=== PATIENT | male | born 1975 | race Caucasian/White ===

== ENCOUNTER → 2021-02-19 09:21 | Outpatient (CLI) | payer OTHER, SELFPAY ==
[2021-02-06 15:12] VITALS: BMI 35.1
--- NOTE | 2021-02-19 09:33 | ECHOD_ITS ---
Reason For Study: Hx of A fib/flutter Procedure This was a 2D Doppler, Color Flow transthoracic echocardiogram. Exam performed in department. Left Ventricle Normal LV size. Left ventricular systolic function is normal. The estimated ejection fraction is 60 %. Stage 1 diastolic dysfunction. No regional wall motion abnormalities noted. Right Ventricle Normal RV size. Normal systolic function. Atria Normal left atrium. Normal right atrium. Mitral Valve Normal mitral valve. Tricuspid Valve Normal tricuspid valve. Aortic Valve Normal aortic valve. Pulmonic Valve Normal pulmonic valve. Great Vessels Normal aortic root. Pericardium/Pleural No pericardial effusion. MMode/2D Measurements & Calculations LVIDd: 5.2 cm IVSd: 1.0 cm Ao root diam: 3.1 cm LVIDs: 3.2 cm LVPWd: 0.98 cm RVDd: 3.7 cm FS: 37.7 % LAV(MOD-bp): 49.2 ml EDV(MOD-sp4): 110.7 ml EDV(MOD-sp2): 95.1 ml LAV(MOD-bp) Indexed: 22.6 ml/m2 ESV(MOD-sp4): 38.8 ml EF(MOD-sp2): 56.7 % LAV(MOD-sp2): 57.2 ml EF(MOD-sp4): 65.0 % LAV(MOD-sp4): 38.7 ml SV(MOD-sp4): 71.9 ml SV(MOD-sp2): 53.9 ml LA A4 area: 16.3 cm2 LA dimension(2D): 3.2 cm RA A4 area: 13.7 cm2 Doppler Measurements & Calculations MV E max tim: 48.6 cm/sec Lat Peak E' Tim: 14.4 cm/sec Med Peak E' Tim: 9.1 cm/sec MV A max tim: 53.4 cm/sec E/E' lat: 3.4 E/E' med: 5.4 MV E/A: 0.91 Ao V2 max: 137.3 cm/sec LV V1 max: 104.9 cm/sec PA V2 max: 179.9 cm/sec Ao max P.5 mmHg LV V1 max P.4 mmHg ECHO/Echo Complete Interpretation Summary Normal LV size. Left ventricular systolic function is normal. The estimated ejection fraction is 60 %. Stage 1 diastolic dysfunction. The global longitudinal strain is normal. The global longitudinal strain = -18. 9 % (normal). Ordering Physician: Hayden Turner Referring Physician: Hayden Turner Performed By: Kayla Jimenez RDCS
--- NOTE | 2021-02-19 12:44 | STRESSREP ---
Stress Test Report Exercise stress test. 45-year-old man with a history of atrial fibrillation. Stress protocol: Resting EKG demonstrates normal sinus rhythm with a rate of 70 bpm normal intervals are noted resting blood pressure is 118/80 mmHg. The patient exercised according to the regular Adams protocol for a total duration of 12 minutes and 22 seconds. The maximum heart rate attained was 166 bpm which was 95% of maximum predicted heart rate the maximum workload was 14 metabolic equivalents. The patient maintained sinus rhythm throughout the recording. At rest there were no ST or T wave changes noted to suggest ischemia and at peak exercise upsloping ST changes were noted which did not meet the criteria for ischemia. No clinical angina was noted. The test was terminated due to the target heart rate being achieved. The peak blood pressure was 164/88, with a rate-pressure product of 25,400. Conclusion: Normal exercise stress test with no evidence of ischemia at a high workload. No clinical angina noted. No arrhythmias present.
== END ==
PROVIDERS: Referring Provider Internal Medicine Cardiovascular Disease; Visit Provider Internal Medicine Cardiovascular Disease
DX: I48.0 Paroxysmal atrial fibrillation (principal)
CPT/HCPCS: 93017; 93306

== ENCOUNTER → 2023-02-21 | Outpatient (CLI) | payer OTHER, SELFPAY | END | disposition home or self-care (01) | LOC: PSN 09:19 | PROVIDERS: Referring Provider Nurse Practitioner Family; Visit Provider Nurse Practitioner Family | DX: R00.0 Tachycardia, unspecified (principal); I48.0 Paroxysmal atrial fibrillation | CPT/HCPCS: 93225; 93226 ==

== ENCOUNTER 2025-04-15 08:03 | Emergency (ER) | payer BC, SELFPAY ==
[2025-04-15] VITALS (7 sets, daily range): BP systolic 132–136; BP diastolic 74–92; PULSE 62–77; RESP 14–18; TEMP 36.6–36.7; O2SAT 98–100; BMI 35.8
--- NOTE | 2025-04-15 08:26 | EKG12_ITS ---
Test Reason : CP Blood Pressure : */* mmHG Vent. Rate : 74 BPM Atrial Rate : 74 BPM P-R Int : 186 ms QRS Dur : 88 ms QT Int : 406 ms P-R-T Axes : 56 35 29 degrees QTcB Int : 450 ms Normal sinus rhythm with sinus arrhythmia Normal ECG Confirmed by Yair Clarke ([id number]), industrial editor U[employer] ELISE ([id number]) on 04/16/2025 11:11:03 AM Referred By: GRAHAM Confirmed By: Yair Clarke
--- NOTE | 2025-04-15 08:26 | RAD_ITS ---
PROCEDURE: CHEST 1 VIEW (PORTABLE) 04/15/2025 REASON FOR EXAM: CHEST PAIN TECHNIQUE: Frontal view of the chest. COMPARISON: None FINDINGS: The lungs are clear. The heart borders mediastinum and pulmonary vascular pattern are normal. The visualized upper abdominal bowel gas pattern is normal. There is mild dextroscoliosis of the thoracic spine. RAD/Chest 1 View (Portable) IMPRESSION: No evidence of acute cardiopulmonary pathology. Reading Location: [place] [address]
--- NOTE | 2025-04-15 08:27 | EDS_ITS ---
HPI History of Present Illness Chief Complaint: Chest Pain Narrative Narrative: 50-year-old male past medical history of remote paroxysmal atrial fibrillation, status post cardioversion is not on blood thinners presents with heartburn and burning in his chest since yesterday. He relates history that yesterday morning he was experiencing nausea and vomiting, no hematemesis. He went to urgent care and was given Zofran. He states that his nausea and vomiting would not stop. No diarrhea. No recent fevers or chills. However, he has had heartburn and burning in his chest in the distal portion of his esophagus. He presents to the emergency department with concern for ACS. He relates history that his grandfather had early coronary artery disease. No exacerbating or alleviating factors to this. No leg swelling. No shortness of breath or diaphoresis. [facility] Medical History COVID-19 (~03/2022) Obesity JESUS (obstructive sleep apnea) Paroxysmal atrial fibrillation Home Medications ?Medication ?Instructions ?Recorded ?Last Taken ?Type losartan 25 mg tablet 25 mg PO DAILY #90 tabs 11/0704/14/25 Rx calcium carbonate (Antacid Ultra 400 mg PO Q4H PRN hea rtburn 04/15/25 04/15/25 History Strength) magnesium 250 mg tablet 250 mg PO DAILY sleep 04/13/25 History ondansetron 4 mg disintegrating 4 mg PO Q8H PRN PRN na usea/vomiting 04/15/25 04/15/25 History tablet Allergy/AdvReac Type Severity Reaction Status Date / Time Penicillins Allergy Unknown unknown Verified 04/15/25 08:04 Family History Mother Cancer Father Hypertension Brother Hypertension Surgical History History of cardioversion (04/14/17) Social History Smoking Status: Never smoker alcohol intake: current alcohol intake frequency: a few times a month substance use type: does not use caffeine: Yes Type: coffee Number of servings: 1 ROS ROS ED ROS Narrative Review of systems positive for nausea and vomiting yesterday-improved/resolved. Positive chest burning lower chest. No fevers or chills, no cough, no diarrhea, no abdominal pain. No leg swelling. No exacerbating or alleviating factors except for the Zofran which improved his nausea and vomiting. EXAM Physical Exam Narrative Exam Narrative: Afebrile. Vital signs noted. Nontoxic-appearing. Cardiovascular examination reveals a regular rate and rhythm. Lungs are clear to auscultation bilaterally. Abdomen is soft, nontender, with positive bowel sounds. No guarding or rebound. Neurological examination is nonfocal, nonlateralizing. No pedal edema. Const Vital Signs: 04/15/25 08:04 04/15/25 08:34 04/15/25 09:04 Temperature 98.1 F Temperature Source Oral Pulse Rate 77 68 Respiratory Rate 16 15 Blood Pressure 134/92 H 134/77 H Blood Pressure Mean 106 96 Pulse Ox 98 100 100 Oxygen Delivery Method Room Air Room Air Room Air 04/15/25 10:00 04/15/25 11:00 04/15/25 11:12 Temperature Temperature Source Pulse Rate 62 68 73 Respiratory Rate 14 15 17 Blood Pressure 133/74 H 132/79 H 132/79 H Blood Pressure Mean 93 96 96 Pulse Ox 100 100 100 Oxygen Delivery Method Room Air Room Air MDM MDM MDM Narrative Medical decision making narrative: The differential diagnosis includes but not limited to esophagitis from vomiting versus ACS versus Boerhaave's versus gastritis. His abdomen is nontender and history and physical does not support pancreatitis. Chest pain workup was pursued. He was given a GI cocktail as well. EKG obtained and interpreted by myself independently as normal sinus rhythm at 74 bpm with sinus arrhythmia but no acute ST changes. No STEMI. I do feel that he would be able to be ruled out with biomarkers for ACS. I reviewed his laboratory work and he has normal white count of 6.9 with hemoglobin 15.3, hematocrit 43.4, platelet count normal at 180. Electrolyte panel is grossly unremarkable, with the exception of glucose 113, anion gap normal at 11. Initial high-sensitivity troponin is 7 with repeat at 2 hours less than 6 for an acceptable delta troponin. Repeat examination of the patient after GI cocktail shows that he has improved and resting comfortably on the cot. Chest x-ray in 1 view interpreted by myself independently shows no acute process, no pneumonia or pneumothorax. I do not feel he needs antibiotics. I reviewed the radiology report which confirms my independent interpretation. Given his history and physical, negative delta troponin, and normal EKG, I do feel he can be discharged to follow-up with his primary care provider. He was referred to 1 as well. I do feel he probably has more esophagitis from vomiting as he improved after GI cocktail. At this point in time, he will be discharged to follow-up. Return instructions to the emergency department were reviewed. Disposition is discharged home in stable condition. History & Record Review Discussion w/independent historian: Patient and Family Additional record(s) reviewed:: No prior records (No prior ED visits to this facility) Lab Data Attestation: I reviewed the patient's lab results. Labs: Laboratory Results - last 24 hr 04/15/25 04/15/25 08:30 10:53 WBC 6.9 RBC 5.28 Hgb 15.3 Hct 43.4 MCV 82.2 MCH 29.0 MCHC 35.3 RDW Std Deviation 38.4 RDW Coeff of Baljinder 12.8 Plt Count 180 MPV 10.9 Immature Gran % (Auto) 0.300 Neut % (Auto) 89.8 H Lymph % (Auto) 5.[address] [place] % (Auto) 4.4 Eos % (Auto) 0.1 Baso % (Auto) 0.3 Absolute Neuts (auto) 6.2 Absolute Lymphs (auto) 0.35 L Nucleated RBC % 0 Sodium 134 Potassium 3.8 Chloride 100 Carbon Dioxide 23.9 Anion Gap 11 BUN 14 Creatinine 0.89 Estim Creat Clear Calc 115.04 Est GFR (MDRD) Non-Af 103 BUN/Creatinine Ratio 16.0 Glucose 113 H Calcium 9.6 Troponin T High Sens 7 Troponin T Hi Sens 2 Hr < 6 Radiography Diagnostic Testing: Clinical Impression(s) from Imaging Studies Chest X-Ray 04/15/25 08:26 IMPRESSION: No evidence of acute cardiopulmonary pathology. Reading Location: [place] [address] Discharge Plan Triage Chief Complaint: Chest Pain ED Provider: Hai Mcknight Dx/Rx/DC Orders Clinical Impression: Chest pain, Esophagitis Instructions: Esophagitis, ED Chest Pain, Uncertain Cause Prescriptions: No Action losartan 25 mg tablet 25 mg PO DAILY Qty: 90 3RF ondansetron 4 mg tablet,disintegrating 4 mg PO Q8H PRN PRN (Reason: nausea/vomiting) magnesium 250 mg tablet 250 mg PO DAILY calcium carbonate [Antacid Ultra Strength] 400 mg calcium (1,000 mg) tablet,chewable 400 mg PO Q4H PRN (Reason: heartburn) Primary Care Provider: Care Physician,No Primary Referrals: Jose Alcala MD [Med Staff - [employer]] - 3-5 Days if not improving Care Physician,No Primary [Primary Care Provider] - Activity Restrictions/Additional Instructions: Return to the emergency department with increasing chest burning, new or worsening symptoms. Follow-up with your primary care provider in the next 3 to 5 days. You may need referral to a screening unit registered nurse in the future. Print Language: Citizen Of [place] Disposition Disposition: Home, Self Care
[2025-04-15 08:45] LABS: Absolute Lymphocyte Count 0.35 X10^3/uL (0.83-4.51); Absolute Neutrophil Count 6.2 X10^3/uL (2.0-7.7); Basophil# 0.02 X10^3/uL; Basophil% 0.3 % (0-1); Eosinophil# 0.01 X10^3/uL; Eosinophils% 0.1 % (0-5); Hematocrit 43.4 % (40-54); Hemoglobin 15.3 g/dL (13.0-16.5); Lymphocyte # 0.35 X10^3/ul (0.83-4.51); Lymphocyte % 5.1 % (19-41); Mean Corp Hgb Conc 35.3 g/dL (32-36); Mean Corpuscular Volume 82.2 fL (80-94); Mean Platelet Vol. 10.9 fl (6.2-12.0); Monocyte% 4.4 % (0-10); NRBC Flagged by Analyzer 0 % (0-5); Neutrophil # 6.16 X10^3/uL (2.7-7.7); Neutrophil % 89.8 % (47-70); POSITIVE DIFFERENTIAL YES; Platelet Count 180 K/mm3 (150-450); RBC Distribution Width CV 12.8 % (11.6-14.6); RBC Distribution Width SD 38.4 fl (35.1-43.9); Red Blood Count 5.28 M/mm3 (4.6-6.2); White Blood Count 6.9 K/mm3 (4.4-11.0)
[2025-04-15] MEDS: Mag Hydrox/Al Hydrox/Simeth 30 ML UDC PO (08:47)
[2025-04-15] MEDS: Lidocaine 2% Viscous15 ML UDC 15 ML PO (08:47)
[2025-04-15 09:16] LABS: Anion Gap 11 (5-15); BUN 14 mg/dL (4-19); Calcium,Total 9.6 mg/dL (7.6-11.0); Carbon Dioxide 23.9 mmol/L (21.0-32.0); Chloride 100 mmol/L (98-108); Creatinine, Serum 0.89 mg/dL (0.70-1.20); EST Glomerular Filtration Rate 103 (>60); Estimated Creatinine Clearance 115.04 ml/min (50-250); Glucose 113 mg/dL (70-99); Potassium 3.8 mmol/L (3.3-5.1); Sodium Level 134 mmol/L (133-145); Troponin T High Sensitivity 7 ng/L (<=22)
--- OUTSIDE RECORDS SUMMARY | 2025-04-15 11:35 | XMS RPT_ITS | CCD ---
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 Name Role Phone Jaren Ruizn Unavailable Unavailable PROVIDER, UNKNOWN Unavailable Unavailable Kaylee Bush Unavailable Unavailable Unavailable Primary Care Provider UnavailMARK Sparks Attending Unavailable MARK JOHNSON Referring Unavailable KASIA HART Referring Unavailable KASIA HART Primary Care Unavailable Jesús Williamson NP Attending Unavailable Unavailable Primary Care Provider Unavailcarlito e Allergies Allergy Classification Reported Allergen(s) Allergy Type Date of Onset Reaction(s) Facility (3 sources) Penicillins; Translations: [PENICILLINS] Allergy to substance 7 unknown [facility] (2 sources) Penicillins Drug Intolerance 7 Unknown [facility] Work Phone: (1 source) Penicillins Drug allergy (disorder) 5 [facility] Repository (1 source) Penicillins Drug Intolerance 7 Unknown [facility] Medications Current Medications Medication Drug Class(es) Dates Sig (Normalized) Sig (Original) losartan potassium 25 mg oral tablet (2 sources) Angiotensin 2 Receptor Lio Start: 05-17-2022 take 25 mg by mouth once daily Losartan Active 25 MG PO DAILY May 17, 2022 12:00am meloxicam 15 mg oral tablet (2 sources) Nonsteroidal Anti-inflammatory Drug Start: 09-04-2024 End: 09-18-2024 take 1 tablet by mouth once daily meloxicam (Mobic) 15 mg tablet Indications: Patellofemoral arthritis of left knee Take 1 tablet (15 mg) by mouth once daily for 14 days. 14 tablet 09/04/2024 09/18/2024 Active ondansetron 4 mg disintegrating oral tablet (1 source) Serotonin-3 Receptor Antagonist Start: 04-14-2025 take 1 tablet by mouth every eight hours for nausea ondansetron ODT (Zofran-ODT) 4 mg disintegrating tablet Indications: Nausea and vomiting, unspecified vomiting type Dissolve 1 tablet (4 mg) in the mouth every 8 hours if needed for nausea or vomiting for up to 12 doses. 12 tablet 04/14/2025 Active Start: 04-14-2025 take 1 tablet by simone th every eight hours for nausea ondansetron ODT (Zofran-ODT) 4 mg disintegrating tablet Indications: Nausea and vomiting, unspecified vomiting type Dissolve 1 tablet (4 mg) in the mouth every 8 hours if needed for nausea or vomiting for up to 12 doses. 12 tablet 04/14/2025 Active Completed/Discontinued Medications Medication Drug Class(es) Dates Sig (Normalized) Sig (Original) aspirin 81 mg delayed release oral tablet (1 source) Platelet Aggregation Inhibitor, Nonsteroidal Anti-inflammatory Drug Start: 02-03-2021 End: 02-06-2021 Aspirin (Adult Low Dose Aspirin) 81 mg tablet,delayed release (DR/EC) Discontinued 81 MG PO DAILY February 03, 2021 12:00am February 06, 2021 3:12pm lisinopril 10 mg oral tablet (3 sources) Angiotensin Converting Enzyme Inhibitor Start: 08-21-2021 End: 05-17-2022 take 5 mg by mouth once daily Lisinopril Discontinued 5 MG PO DAILY 0 August 21, 2021 9:00am May 17, 2022 4:20pm Start: 08-13-2021 End: 08-21-2021 take 10 mg by mouth once daily Lisinopril Discontinued 10 MG PO DAILY August 13, 2021 9:25am August 21, 2021 9:00am 24 hr metoprolol succinate 25 mg extended release oral tablet (1 source) beta-Adrenergic Lio Start: 02-03-2021 End: 02-06-2021 take 25 mg by mouth once daily Metoprolol Succinate Discontinued 25 MG PO DAILY February 03, 2021 12:00am February 06, 2021 3:38pm Problems Problem Classification Problem Date Documented Da te Episodic/Chronic Cardiac dysrhythmias (1 source) Paroxysmal atrial fibrillation; Translations: [Paroxysmal atrial fibrillation] 02-03-2021 Chronic Cardiac dysrhythmias (1 source) Sinus tachycardia; Translations: [Tachycardia, unspecified] 02-14-2023 Episodic Nausea and vomiting (2 sources) Nausea and vomiting; Translations: [Nausea with vomiting, unspecified] Onset: 04-14-2025 04-14-2025 Episodic Osteoarthritis (4 sources) Arthritis of knee; Translations: [Unilateral primary osteoarthritis, left knee] Onset: 09-04-2024 09-04-2024 Chronic Other non-traumatic joint disorders (6 sources) Pain in left knee; Translations: [Pain in joint, lower leg] Onset: 09-04-2024 09-04-2024 Episodic Other nutritional; endocrine; and metabolic disorders (1 source) Weight gain; Translations: [Abnormal weight gain] 05-17-2022 Episodic Unclassified (2 sources) Left knee pain, unspecified chronicity 09-04-2024 Results Test Name Value Interpretation Reference Range Facility Cardiology Visit Reporton Cardiology Visit Report [facility] [address] [place] [address] OFFICE VISIT Date of Service: 11/19/24 MR#: [id number] Acct: [id number] Name: SHELTON CARR Rep #: [id number] : 1975 Provider: KATLYN carnes Age/Sex: 49/M Location: [facility] Status: Signed HPI HPI History of Present Illness Details: Shelton Carr is a 49 year old gentleman that presents here today for a cardiovascular follow up. He has a history of paroxysmal atrial fibrillation in April 2017. He underwent DC cardioversion at that time and since then has lost a significant amount of weight he has not had any more episodes of atrial fibrillation. He denies chest, arm, jaw, or neck discomfort. He acknowledges shortness of breath with activity during low intensity exercise. He acknowledges occasional shortness of breath with anxiety. He denies symptoms of shortness of breath at rest, orthopnea, PND, sudden weight gain, or bilateral lower extremity edema. He denies chronic cough. He denies palpitations, lightheadedness, dizziness, near syncope, or syncopal episodes. He denies claudication issues. He denies fever or chills. He denies blood in urine, blood in stool, or epistaxis. He denies myalgia. He denies unexplainable fatigue. His exercise tolerance is stable with weight training and cardio exercises on regular basis. He states positional JESUS. Intake Vital Signs 08/15/23 08:39 11/19/24 08:11 Height 5 ft 8 in 5 ft 8 in Weight: 246 lb BMI 37.4 BP 135/94 H Blood Pressure Location Lt brachial Position Sitting Respiration 18 Pulse 69 Pulse Source NIBP Intake Visit Reasons: 1 Y FU Admissions Manager Rn Required: No Accompanied by: Self Is patient in pain?: No Allergies Penicillins Allergy (Unknown, Verified 11/19/24 09:23) unknown Medications ???Medication ???Instructions ???Recorded ???Confirmed ???Type omega-3 fatty acids 1,000 mg PO DAILY 08/15/23 11/19/24 History losartan 25 mg tablet 25 mg PO DAILY #90 tabs 11/19/24 11/19/24 Rx Ejection fraction %: 60 Have you fallen in the past year?: No PFSH Medical History COVID-19 ( 03/2022) Obesity JESUS (obstructive sleep apnea) Paroxysmal atrial fibrillation Surgical History History of cardioversion (04/14/17) Family History Mother Cancer Father Hypertension Brother Hypertension Social History Smoking Status: Never smoker alcohol intake: current alcohol intake frequency: a few times a month substance use type: does not use caffeine: Yes Type: coffee Number of servings: 1 ROS Const Const: Negative for fatigue, weakness, headache(s) or weight gain ENT ENT: Negative for headache(s), dizziness, Nosebleed/epistaxis or balance problems Cardio Chest Pain: No Palpitations: No Edema: None Muscle aches with walking: None Resp Respiratory: Positive for snoring; Negative for SOB with activity, SOB at rest or SOB orthopnea SOB lying down GI GI: Negative nausea, vomiting or heartburn : Negative for hematuria or frequent nighttime urination/ nocturia Musc Musc: Negative for muscle aches/ myalgia, muscle weakness, joint pain or balance problems Skin Skin: Negative non-healing lesions or rash Neuro Neuro: Negative for dizziness, lightheadedness, near syncope, syncope, headache(s) or weakness Endo Endo: Negative for fatigue Allergy Allergy/Immunology: Negative for rash Cardiology Exam Const Appearance: cooperative, healthy appearing, comfortable and no acute distress Nutritional Appearance: well nourished and obese Orientation: alert, awake and oriented x3 Head Head: normal to inspection Ears: hearing grossly normal bilaterally Nose: external nose normal Face and Sinus: face symmetric Mouth: moist mucous membranes Eyes General: appearance normal, both eyes and all related structures Eyelids: eyelids normal EOM: EOM intact bilaterally Neck Neck: normal visual inspection and no JVD Carotids: normal carotid upstroke Chest Chest inspection: normal inspection of the chest, symmetric chest movement and normal respiratory effort; Negative cough Auscultation: Bilateral: Clear to Auscultation Cardio Rate: regular rate Rhythm: regular rhythm Heart sounds: S1 normal and S2 normal; Negative rub, gallop or murmur GI GI: normal to inspection and obese Neuro General: patient alert, patient awake, patient oriented x3 and CN's II-XI intact bilaterally Skin Skin: no rashes or lesions noted Extremities Pulses: Normal: Right Posterior Tibial Pulse, Left Posterior Tibial Pulse, Right Radial Pulse and Left Radial Pulse Lower Ex (more content not included)... Normal [facility] XR KNEE LEFT 4+ VIEWSon 08-08 XR KNEE LEFT 4+ VIEWS Interpreted By: Michelle Manzo, STUDY: Left knee, four views. INDICATION: Signs/Symptoms:pain. COMPARISON: None. ACCESSION NUMBER(S): [id number] ORDERING CLINICIAN: MARK JOHNSON FINDINGS: No acute fracture or malalignment. Joint spaces are well maintained. No significant knee joint effusion. Soft tissues are unremarkable. IMPRESSION: 1. Unremarkable radiographic evaluation of the left knee. MACRO: None. Signed by: Michelle Manzo 09/06/2024 7:25 AM Dictation workstation: [id number] [facility] BASIC METABOLIC PANELon 08-07 Urea nitrogen [Mass/Vol] 15 mg/dL Normal 6 - 23 [facility] Comment on above: Performed By: #### B MP #### [facility] [address] [place] [address] Anion gap [Moles/Vol] 11 mmol/L Normal 10 - 20 [facility] Comment on above: Performed By: #### B MP #### [facility] [address] [place] [address] Calcium [Mass/Vol] 9.3 mg/dL Normal 8.6 - 10.6 [facility] Comment on above: Performed By: #### B MP #### [place] [address] [place] [address] Chloride [Moles/Vol] 104 mmol/L Normal 98 - 107 [facility] Comment on above: Performed By: #### B MP #### [place] [address] [place] [address] Creatinine [Mass/Vol] 0.98 mg/dL Normal 0.50 - 1.30 [facility] Comment on above: Performed By: #### B MP #### [place] [address] [place] [address] eGFR MALE >90 Normal >90 [facility] Comment on above: Result Comment: CALC ULATIONS OF ESTIMATED GFR ARE PERFORMED USING THE 2020 CKD-EPI STUDY REFIT EQUATION WITHOUT THE RACE VARIABLE FOR THE IDMS-TRACEABLE CREATININE METHODS. https://jasn.asnjournals.org/content//ASN.68028200 88 Performed By: #### B MP #### [place] [address] [place] [address] Glucose [Mass/Vol] 88 mg/dL Normal 74 - 99 [facility] Comment on above: Performed By: #### B MP #### [facility] [address] [place] [address] HCO3 (Bld) [Moles/Vol] 27 mmol/L Normal 21 - 32 [facility] Comment on above: Performed By: #### B MP #### [facility] [address] [place] [address] Potassium [Moles/Vol] 4.2 mmol/L Normal 3.5 - 5.3 [facility] Comment on above: Performed By: #### B MP #### [facility] [address] [place] [address] Sodium [Moles/Vol] 138 mmol/L Normal 136 - 145 [facility] Comment on above: Performed By: #### B MP #### [facility] [address] [place] [address] HEMOGLOBIN A1Con 08-16-2022 Glucose [Mass/Vol] 82 mg/dL Normal [facility] Comment on above: Performed By: #### H BA1E #### [facility] [address] [place] [address] HbA1c (Bld) [Mass fraction] 4.5 % Normal [facility] Comment on above: Result Comment: Diag nosis of Diabetes-Adults Non-Diabetic: < or = 5.6% Increased risk for developing diabetes: 5.7-6.4% Diagnostic of diabetes: > or = 6.5% . Monitoring of Diabetes Age (y) Therapeutic Goal (%) Adults: >18 <7.0 Pediatrics: 13-18 <7.5 7-12 <8.0 0- 6 7.5-8.5 [place] [employer]. Diabetes Care 33(S1), Nov 2009. Performed By: #### H BA1E #### [facility] [address] [place] [address] HEPATIC FUNCTION PANELon Albumin [Mass/Vol] 4.1 g/dL Normal 3.4 - 5.0 [facility] Comment on above: Performed By: #### H EPFP #### [facility] [address] [place] [address] ALP [Catalytic activity/Vol] 62 U/L Normal 33 - 120 [facility] Comment on above: Performed By: #### H EPFP #### [facility] [address] [place] [address] ALT [Catalytic activity/Vol] 45 U/L Normal 10 - 52 [facility] Comment on above: Result Comment: Jill ents treated with Sulfasalazine may generate falsely decreased results for ALT. Performed By: #### H EPFP #### [facility] [address] [place] [address] AST [Catalytic activity/Vol] 34 U/L Normal 9 - 39 [facility] Comment on above: Performed By: #### H EPFP #### [facility] [address] [place] [address] Bilirubin [Mass/Vol] 0.9 mg/dL Normal 0.0 - 1.2 [facility] Comment on above: Performed By: #### H EPFP #### [facility] [address] [place] [address] Bilirubin.indirect [Mass/Vol] 0.1 mg/dL Normal 0.0 - 0.3 [facility] Comment on above: Performed By: #### H EPFP #### [facility] [address] [place] [address] Protein [Mass/Vol] 7.3 g/dL Normal 6.4 - 8.2 [facility] Comment on above: Performed By: #### H EPFP #### [facility] [address] [place] [address] LIPID PANEL (CORONARY RISK 2 )on 08-16-2022 Cholesterol [Mass/Vol] 190 mg/dL Normal 0 - 199 [facility] Comment on above: Result Comment: . AGE DESIRABLE BORDERLINE HIGH HIGH 0-19 Y 0 - 169 170 - 199 >/= 200 20-24 Y 0 - 189 190 - 224 >/= 225 >24 Y 0 - 199 200 - 239 >/= 240 All ranges are based on fasting samples. Specific therapeutic targets will vary based on patient-specific cardiac risk. . Pediatric guidelines reference:Pediatrics 2011, 128(S5). Adult guidelines reference: NCEP ATPIII Guidelines, SHO 2001, 258:2486-97 . Venipuncture immediately after or during the administration of Metamizole may lead to falsely low results. Testing should be performed immediately prior to Metamizole dosing. Performed By: #### L IPID #### [facility] [address] [place] [address] Cholesterol in HDL [Mass/Vol] 40.5 mg/dL Normal [facility] Comment on above: Result Comment: . AGE VERY LOW LOW NORMAL HIGH 0-19 Y < 35 < 40 40-45 ---- 20-24 Y ---- < 40 >45 ---- >24 Y ---- < 40 40-60 >60 . Performed By: #### L IPID #### [facility] [address] [place] [address] Cholesterol in LDL [Mass/Vol] 127 mg/dL High 0 - 99 [facility] Comment on above: Result Comment: . NEAR BORD AGE DESIRABLE OPTIMAL HIGH HIGH VERY HIGH 0-19 Y 0 - 109 --- 110-129 >/= 130 ---- 20-24 Y 0 - 119 --- 120-159 >/= 160 ---- >24 Y 0 - 99 100-129 130-159 160-189 >/=190 . Performed By: #### L IPID #### [facility] [address] [place] [address] Cholesterol in VLDL [Mass/Vol] 23 mg/dL Normal 0 - 40 [facility] Comment on above: Performed By: #### L IPID #### [facility] [address] [place] [address] Cholesterol.total/C holesterol in HDL [Mass ratio] 4.7 {ratio} Normal [facility] Comment on above: Result Comment: REF VALUES DESIRABLE < 3.4 HIGH RISK > 5.0 Performed By: #### L IPID #### [facility] [address] [place] [address] Triglyceride [Mass/Vol] 114 mg/dL Normal 0 - 149 [facility] Comment on above: Result Comment: . AGE DESIRABLE BORDERLINE HIGH HIGH VERY HIGH 0 D-90 D 19 - 174 ---- ---- ---- 91 D- 9 Y 0 - 74 75 - 99 >/= 100 ---- 10-19 Y 0 - 89 90 - 129 >/= 130 ---- 20-24 Y 0 - 114 115 - 149 >/= 150 ---- >24 Y 0 - 149 150 - 199 200- 499 >/= 500 . Venipuncture immediately after or during the administration of Metamizole may lead to falsely low results. Testing should be performed immediately prior to Metamizole dosing. Performed By: #### L IPID #### [facility] [address] [place] [address] MAGNESIUMon 08-16-2022 Magnesium [Mass/Vol] 2.08 mg/dL Normal 1.60 - 2.40 [facility] Comment on above: Performed By: #### M G #### [facility] [address] [place] [address] THYROXINE,FREEon 08-16-2022 THYROXINE,FREE 1.32 ng/dL Normal 0.78 - 1.48 [facility] Comment on above: Result Comment: Thyr oxine Free testing is performed using different testing methodology at [facility] than at other [facility]. Direct result comparisons should only be made within the same method. Performed By: #### T 4FRE #### [facility] [address] [place] [address] TSHon 08-16-2022 TSH Qn 3.29 m[IU]/L Normal 0.44 - 3.98 [facility] Comment on above: Result Comment: TSH testing is performed using different testing methodology at [facility] than at other [facility]. Direct result comparisons should only be made within the same method. Performed By: #### T SH2 #### [facility] [address] [place] [address] ALLIED HEALTHon 01-30-2021 ALLIED HEALTH HNO ID: [id number] Author: Aura Alvarez (Rt) Service: Radiology Author Type: Appeals Representative Type: Allied Health Filed: 01/30/2021 7:51 PM Note Text: Radiology Service Progress Note PATIENT NAME: Shelton Carr DATE OF SERVICE: January 30, 2021 TIME: 7:51 PM PATIENT IDENTITY VERIFICATION COMPLETED USING TWO (2) IDENTIFIERS: Name and Date of confirmed by patient verbally. FALL SCREENING: Has the patient had 2 falls in the last year or 1 fall with injury or currently using an Ambulatory Assistive Device (Walker, Cane, Wheelchair, Crutches, etc.)? Emergency Room Patient: Screened in ED PATIENT GENDER DATA: Male PATIENT RELEVANT IMPLANT DATA REVIEWED: Not Applicable RADIOLOGY DEPARTMENT: General X-ray: Exam(s) Completed: Chest X-Ray PERIPHERAL IV DATA: Not applicable SIGNED BY: RT Kim January 30, 2021 7:51 PM [facility] CBC and Differentialon 01-30 Abs Baso 0.04 k/uL Normal <0.11 [facility] Comment on above: Performed By: #### P T, CK, CMP, CBCDIF, MG1, DDMER #### [facility] [address] [phone] Abs [place] 0.71 k/uL Normal <0.87 [facility] Comment on above: Performed By: #### P T, CK, CMP, CBCDIF, MG1, DDMER #### [facility] [address] [phone] Abs Neut 6.67 k/uL Normal 1.45-7.50 [facility] Comment on above: Performed By: #### P T, CK, CMP, CBCDIF, MG1, DDMER #### [facility] [address] [place] [phone] Absolute nRBC <0.01 Normal <0.01 [facility] Comment on above: Performed By: #### P T, CK, CMP, CBCDIF, MG1, DDMER #### [facility] [address] [place] [phone] Basophils/100 WBC (Bld) 0.4 % [facility] Comment on above: Performed By: #### P T, CK, CMP, CBCDIF, MG1, DDMER #### [facility] [address] [place] [address] DTYPE Auto Diff Normal [facility] Comment on above: Performed By: #### P T, CK, CMP, CBCDIF, MG1, DDMER #### [facility] [address] [place] [address] Eosinophils (Bld) [#/Vol] 10*3/uL Normal <0.46 [facility] Comment on above: Performed By: #### P T, CK, CMP, CBCDIF, MG1, DDMER #### [facility] [address] [place] [phone] Eosinophils/100 WBC (Bld) 0.2 % Normal [facility] Comment on above: Performed By: #### P T, CK, CMP, CBCDIF, MG1, DDMER #### [facility] [address] Erythrocyte distribution width (RBC) [Ratio] 12.4 % Normal 11.5-15.0 [facility] Comment on above: Performed By: #### P T, CK, CMP, CBCDIF, MG1, DDMER #### [facility] [address] [phone] Hematocrit (Bld) [Volume fraction] 45.0 % Normal 39.0-51.0 [facility] [place] Comment on above: Performed By: #### P T, CK, CMP, CBCDIF, MG1, DDMER #### [facility] [address] [address] Hemoglobin (Bld) [Mass/Vol] 15.7 g/dL Normal 13.0-17.0 [facility] Comment on above: Performed By: #### P T, CK, CMP, CBCDIF, MG1, DDMER #### [facility] [address] [place] [address] Lymphocytes (Bld) [#/Vol] 1.56 10*3/uL Normal 1.00-4.00 [facility] Comment on above: Performed By: #### P T, CK, CMP, CBCDIF, MG1, DDMER #### [facility] [address] [place] [address] Lymphocytes/100 WBC (Bld) 17.3 % Normal [facility] Comment on above: Performed By: #### P T, CK, CMP, CBCDIF, MG1, DDMER #### [facility] [address] [place], [place] [phone] MCH (RBC) [Entitic mass] 29.5 pG Normal 26.0-34.0 [facility] Comment on above: Performed By: #### P T, CK, CMP, CBCDIF, MG1, DDMER #### [facility] [address] [place], [place] [phone] MCHC (RBC) [Mass/Vol] 34.9 g/dL Normal 30.5-36.0 [facility] Comment on above: Performed By: #### P T, CK, CMP, CBCDIF, MG1, DDMER #### [facility] [address] [place], [place] [phone] MCV (RBC) [Entitic vol] 84.4 fL Normal 80.0-100.0 [facility] Comment on above: Performed By: #### P T, CK, CMP, CBCDIF, MG1, DDMER #### [facility] [address] [facility] [phone] Monocytes/100 WBC (Bld) 7.9 % Normal [facility] Comment on above: Performed By: #### P T, CK, CMP, CBCDIF, MG1, DDMER #### [facility] [address] [facility] [phone] Neutrophils/100 WBC (Bld) 74.2 % Normal [facility] Comment on above: Performed By: #### P T, CK, CMP, CBCDIF, MG1, DDMER #### [facility] [address] [facility] [phone] NRBCs 0.0 /100 WBC Normal 0 [facility] Comment on above: Performed By: #### P T, CK, CMP, CBCDIF, MG1, DDMER #### [facility] [address] [phone] Platelet mean volume (Bld) [Entitic vol] 11.2 fL Normal 9.0-12.7 [facility] Comment on above: Performed By: #### P T, CK, CMP, CBCDIF, MG1, DDMER #### [facility] [address] [facility] [phone] Platelets (Bld) [#/Vol] 225 10*3/uL Normal 150-400 [facility] Comment on above: Performed By: #### P T, CK, CMP, CBCDIF, MG1, DDMER #### [facility] [address] [facility] [phone] RBC (Bld) [#/Vol] 5.33 10*6/uL Normal 4.20-6.00 [facility] Comment on above: Performed By: #### P T, CK, CMP, CBCDIF, MG1, DDMER #### [facility] [address] [facility] [phone] WBC (Bld) [#/Vol] 9.00 10*3/uL Normal 3.70-11.00 [facility] Comment on above: Performed By: #### P T, CK, CMP, CBCDIF, MG1, DDMER #### [facility] [address] CKon 01-30-2021 CK [Catalytic activity/Vol] 181 U/L Normal 51-298 [facility] Comment on above: Performed By: #### P T, CK, CMP, CBCDIF, MG1, DDMER #### [facility] [address]160 Comp Metabolic Panelon 01-30 Albumin [Mass/Vol] 4.5 g/dL Normal 3.9-4.9 [facility] Comment on above: Performed By: #### P T, CK, CMP, CBCDIF, MG1, DDMER #### [facility] [address] [place] [address] ALP [Catalytic activity/Vol] 66 U/L Normal 38-113 [facility] Comment on above: Performed By: #### P T, CK, CMP, CBCDIF, MG1, DDMER #### [facility] [address] [place] [phone] ALT [Catalytic activity/Vol] 15 U/L Normal 10-54 [facility] Comment on above: Performed By: #### P T, CK, CMP, CBCDIF, MG1, DDMER #### [facility] [address] [place], [place] [phone] Anion gap [Moles/Vol] 14 mmol/L Normal 9-18 [facility] Comment on above: Performed By: #### P T, CK, CMP, CBCDIF, MG1, DDMER #### [facility] [address] [place] [phone] AST [Catalytic activity/Vol] 22 U/L Normal 14-40 [facility] Comment on above: Performed By: #### P T, CK, CMP, CBCDIF, MG1, DDMER #### [facility] [address] [place] [phone] Bilirubin [Mass/Vol] 0.5 mg/dL Normal 0.2-1.3 [facility] Comment on above: Performed By: #### P T, CK, CMP, CBCDIF, MG1, DDMER #### [facility] [address] Calcium [Mass/Vol] 9.3 mg/dL Normal 8.5-10.2 [facility] Comment on above: Performed By: #### P T, CK, CMP, CBCDIF, MG1, DDMER #### [facility] [address] [place] [address] Chloride [Moles/Vol] 102 mmol/L Normal 97-105 [facility] Comment on above: Performed By: #### P T, CK, CMP, CBCDIF, MG1, DDMER #### [facility] [address] [place] [address] CO2 [Moles/Vol] 21 mmol/L Low 22-30 [facility] Comment on above: Performed By: #### P T, CK, CMP, CBCDIF, MG1, DDMER #### [facility] [address] [place] [address] Creatinine [Mass/Vol] 1.02 mg/dL Normal 0.73-1.22 [facility] Comment on above: Performed By: #### P T, CK, CMP, CBCDIF, MG1, DDMER #### [facility] [address] [place] [address] eGFR- Amer. >60 Normal [facility] Comment on above: Performed By: #### P T, CK, CMP, CBCDIF, MG1, DDMER #### [facility] [address] [place], [place] [phone] GFR/1.73 sq M predicted among non-blacks MDRD (S/P/Bld) [Vol rate/Area] mL/min/{1.73_m2} Normal [facility] Comment on above: Result Comment: eGFR (Estimated GFR) Units of measure: mL/min/1.73 meters squared eGFR is derived from the reexpressed MDRD Study equation using the following parameters: serum creatinine, age, gender and race. The creatinine assay has been calibrated to be traceable to IDMS. An eGFR <60 mL/min/1.73m2 for >3 months is consistent with chronic kidney disease. Refer to KDOQI guidelines for clinical interpretation. In patients with unstable renal function, e.g. those with acute kidney injury, the eGFR may not accurately reflect actual GFR. Performed By: #### P T, CK, CMP, CBCDIF, MG1, DDMER #### [facility] 1000 [facility] [phone] Glucose [Mass/Vol] 176 mg/dL High 74-99 [facility] Comment on above: Result Comment: The [place] Diabetes Association (ADA) provides guidance for cutoff values for fasting glucose and random glucose. The ADA defines fasting as no caloric intake for at least 8 hours. Fasting plasma glucose results between 100 to 125 mg/dL indicate increased risk for diabetes (prediabetes). Fasting plasma glucose results greater than or equal to 126 mg/dL meet the criteria for diagnosis of diabetes. In the absence of unequivocal hyperglycemia, results should be confirmed by repeat testing. In a patient with classic symptoms of hyperglycemia or hyperglycemic crisis, random plasma glucose results greater than or equal to 200 mg/dL meet the criteria for diagnosis of diabetes. Reference: Standards of Medical Care in Diabetes 2016, [place] Diabetes Association. Diabetes Care. 2016.39(Suppl 1). Performed By: #### P T, CK, CMP, CBCDIF, MG1, DDMER #### [facility] [address] [place] [address] Potassium [Moles/Vol] 3.5 mmol/L Low 3.7-5.1 [facility] Comment on above: Performed By: #### P T, CK, CMP, CBCDIF, MG1, DDMER #### [facility] [address] [place] [phone] Protein [Mass/Vol] 7.6 g/dL Normal 6.3-8.0 [facility] Comment on above: Performed By: #### P T, CK, CMP, CBCDIF, MG1, DDMER #### [facility] [address] [place] [phone] Sodium [Moles/Vol] 137 mmol/L Normal 136-144 [facility] Comment on above: Performed By: #### P T, CK, CMP, CBCDIF, MG1, DDMER #### [facility] 1000 [facility] [phone] Urea nitrogen [Mass/Vol] 29 mg/dL High 9-24 [facility] Comment on above: Performed By: #### P T, CK, CMP, CBCDIF, MG1, DDMER #### [facility] 1000 [facility] [phone] D dimeron 01-30-2021 D dimer 270 ng/mL FEU Normal <500 [facility] Comment on above: Result Comment: 500 ng/mL FEU is the D Dimer cutoff to exclude DVT (deep vein thrombosis) and PE (pulmonary embolism) in patients with a low pre test probability. Supplemental Comment: In patients over 50 years with a low pre test probability for DVT and/or PE, an age adjusted D dimer cutoff can be calculated as [age x 10] ng/mL FEU. For example, a patient of 88 years would have an age adjusted D dimer cutoff of 880 ng/mL FEU. For patients with a suspected DVT, a D dimer level below 500 ng/mL FEU has a negative predictive value of >98.9%, a sensitivity of >96.9% and a specificity of >35.7%. For patients with a suspected PE, a D dimer level below 500 ng/mL FEU has a negative predictive value of >98.5%, and a sensitivity of >96.5% and a specificity of >38.8%. Reference: Ck M, et al. SHO 2014 311:1117 and Van Nitza N, et al. Kaylee Int Med 2016 165:253. Performed By: #### P T, CK, CMP, CBCDIF, MG1, DDMER #### [facility] 1000 [facility] [phone] ED NOTEon 01-30-2021 ED NOTE HNO ID: [id number] Author: Kacey Mejias (Rn) HOLGER Oquendo Service: Nursing Author Type: Registered Nurse Type: ED Notes Filed: 01/30/2021 7:42 PM Note Text: Pt presents to ED from home with . Pt states he has been exhausted and noticed that his heart rate was elevated and started to feel anxious about his heart rate. Pt stable at this time. Plan of care -Monitor Patient's Vital Signs for changes in condition -Monitor patient for changes in pain -Maintain patient safety and privacy -Provide comfort measures -Call light in place Siderails up, bed in locked and low position Normal [facility] ED PROV NOTEon 01-30-2021 ED PROV NOTE HNO ID: [id number] Author: Ryan Crews MD Service: ? Author Type: Physician Type: ED Provider Notes Filed: 01/30/2021 9:26 PM Note Text: ED Provider Note Patient Name: Shelton Carr SERVICE DATE: 01/30/21 History Patient presents with: A. fib This is a 45-year-old male who was diagnosed with A. fib in 2017 who was only on anticoagulation for a couple months presenting with his heart racing noted on his heart monitor on his watch. He is very active and started jogging. Had his Covid vaccine on Tuesday. Today he noted that his heart rate was elevated. He denies chest pain pressure tightness or shortness of breath. No fever chills or cough. No recent travel. No lower extremity swelling. He did start taking an amino acid supplement before his workouts. He did take his metoprolol around 630. No other complaints. Denies excessive caffeine intake. History reviewed. No pertinent past medical history. History reviewed. No pertinent surgical history. No family history on file. Social History Tobacco Use - Smoking status: Never Smoker - Smokeless tobacco: Never Used Substance and Sexual Activity - Alcohol use: Yes Comment: 1-2 drinks per monthly - Drug use: Never - Sexual activity: Not on file ALLERGIES No Known Allergies Review of Systems Constitutional: Negative. Negative for activity change. HENT: Negative. Negative for congestion, ear pain, rhinorrhea and sore throat. Eyes: Negative. Negative for pain, discharge and redness. Respiratory: Negative. Negative for chest tightness. Cardiovascular: Negative. Elevated heart rate Gastrointestinal: Negative. Endocrine: Negative. Genitourinary: Negative. Negative for frequency and urgency. Musculoskeletal: Negative. Negative for arthralgias. Skin: Negative. Neurological: Negative. Negative for weakness and light-headedness. Psychiatric/Behavioral : Negative. Physical Exam BP 173/95 Pulse 107 Temp (Src) 99 (Oral) Resp 24 Ht 5' 8 (1.73m) Wt 234 lb (106.1kg) SpO2 98% BMI 35.59 kg/(m2). O2 Therapy: Room Air Physical Exam Constitutional: General: He is not in acute distress. Appearance: He is well-developed. He is not ill-appearing or toxic-appearing. HENT: Head: Normocephalic and atraumatic. Eyes: Conjunctiva/sclera: Conjunctivae normal. Pupils: Pupils are equal, round, and reactive to light. Cardiovascular: Rate and Rhythm: Regular rhythm. Tachycardia present. Heart sounds: Normal heart sounds. Pulmonary: Effort: Pulmonary effort is normal. Breath sounds: Normal breath sounds. Abdominal: General: Bowel sounds are normal. Palpations: Abdomen is soft. Musculoskeletal: General: Normal range of motion. Cervical back: Normal range of motion and neck supple. Right lower leg: No edema. Left lower leg: No edema. Skin: General: Skin is warm and dry. Neurological: Mental Status: He is alert and oriented to person, place, and time. Psychiatric: Comments: Patient appears anxious Diagnostic Testing ED Labs Ordered and Reviewed COMP METABOLIC PANEL - Abnormal; Notable for the following components: Result Value Ref Range Glucose 176 (*) 74 - 99 mg/dL BUN 29 (*) 9 - 24 mg/dL Potassium 3.5 (*) 3.7 - 5.1 mmol/L CO2 21 (*) 22 - 30 mmol/L All other components within normal limits MAGNESIUM BLD CK CREATINE KINASE HIGH SENSITIVITY TROPONIN T NT PRO BNP D-DIMER CBC + DIFF PROTHROMBIN TIME/PT TSH BLD HIGH SENSITIVITY TROPONIN T Procedures ED Course / Clinical Impression Clinical Impressions as of Jan 30 2126 Sinus tachycardia Hyperglycemia MDM / Disposition / Plan Additional Tests or Interventions: ECG EKG INTERPRETATION: Ordered and Reviewed Rhythm: Sinus tachycardia Rate: 105 [place]: Normal axis Intervals: Normal MO interval QRS Complex: Normal ST Segment: Normal ST-T segments QT Interval: Normal Compared with Prior: Interpretation performed by Sherly Dockery PA-C The medical record is reviewed The nursing notes are reviewed The vitals are Comorbid conditions include: afib in 2017. Covid vaccine on Tuesday. Starting an amino acid this week before work outs Hx, exam and clinical data are most suggestive of 45-year-old that had history of A. fib in 2017 and was anticoagulated for a couple of months and no longer having issues with A. fib presenting with high heart rate that he noted today. It occurred while he was watching a movie. His watch documented that his heart rate was high. I looked at his records and he was the highest at 113. He denies chest pain pressure tightness. EKG with sinus tach with a rate of 105. He was given a liter of fluids. He has a normal white count of 9. Hemoglobin 15.7. Hematocrit is 45. MP shows a glucose of 176. BUN slightly up at 29. He is receiving fluids. Potassium 3.5. Magnesium 1.8. CK 181. High-sensitivity troponins negative. D-dimer is negative at 270. INR 1.1. Chest x-ray is normal. BNP is 8. TSH is 1.160. Repeat troponin is pending. Patient will be discharged home. I provided environmental compliance manager cardiology for outpatient follow up. The patient was DISCHARGED: Counseled patient regarding lab results AND radiology results AND suspected diagnosis AND need for follow-up. Discharged home with verbal and written instructions. They were instructed to return as needed for persistent or worsening symptoms or any new concerns. Condition at time of disposition: stable SIGNATURE: YAMIL Kwong (Pa) 01/30/212027 Attending Note I have personally performed a face to face assessment of the patient and have reviewed the PA/VETERINARY RECEPTIONIST note. My simon findings include: History - Mr. Carr is a 45-year-old male with one-time episode of paroxysmal intermittent A. fib previously now here because he had sinus tachycardia on his fitness watch and became concerned. He is otherwise well presently. Exam - no distress, good perfusion Assessment/Plan - Mr. Carr is a 45 yo M with intermittent mild tachycardia earlier. Much improved here. We are awaiting his second high-sensitivity troponin and will likely have him follow-up closely with his primary physician. Other additions or changes: None Signature: Ryan Crews MD Date: 01/30/2021 Time: 8:52 PM Ryan Crews MD 01/30/212125 Normal [facility] High Sens Troponin Ton 01-30 High Sensitivity CARMELA 6 ng/L Normal <12 [facility] Comment on above: Performed By: #### H STNT #### [facility] 1000 [facility] [phone] High Sensitivity CARMELA <6 Normal <12 [facility] Comment on above: Performed By: #### H STNT #### [facility] 1000 [facility] [phone] Magnesiumon 01-30-2021 Magnesium [Mass/Vol] 1.8 mg/dL Normal 1.7-2.3 [facility] Comment on above: Performed By: #### P T, CK, CMP, CBCDIF, MG1, DDMER #### [facility] 1000 [facility] [phone] NT Pro BNPon 01-30-2021 PRO B Natr Peptide 8 pg/mL Normal <125 [facility] Comment on above: Performed By: #### N TBNP ####[facility] [id number] [place] [phone] Protimeon 01-30-2021 PT Coag (PPP) [Time] 11.2 s Normal 9.7-13.0 [facility] Comment on above: Performed By: #### P T, CK, CMP, CBCDIF, MG1, DDMER #### [facility] [address] [facility] [phone] PT Coag (PPP) [Time] 1.1 s Normal 0.9-1.3 [facility] Comment on above: Result Comment: Tori min K Antagonist (VKA) Therapeutic Range: INR 2 to 3 (Target INR of 2.5) Note: For patients treated with VKA drugs, such as warfarin, the [place] [employer] 2012 Guideline recommends a therapeutic INR range of 2 to 3 (target INR of 2.5). This recommendation includes high-risk patients with antiphospholipid syndrome with previous arterial or venous thromboembolism, current-generation mechanical or bioprosthetic aortic heart valve replacement. Note: Patients with mechanical aortic valve replacement and additional risk factors for thromboembolic events (atrial fibrillation, previous thromboembolism, LV dysfunction, hypercoagulable conditions) or an older generation mechanical AVR (i.e., ball in-Cage) or any mechanical MVR should have a INR therapeutic range of 2.5 to 3.5 (target INR of 3). Pat GH, et al. Chest 2012, 141:7S-47S Ronny RA, et al. [facility] 2017, 70: 252-289 Performed By: #### P T, CK, CMP, CBCDIF, MG1, DDMER #### [facility] [address] [facility] [phone] TSHon 01-30-2021 TSH Qn 1.610 uU/mL Normal 0.270-4.200 [facility] Comment on above: Performed By: #### T ####[facility] [id number] [place] [phone] XR CHEST 2V FRONTAL/LATon XR CHEST 2V FRONTAL/LAT * * *Final Report* * * DATE OF EXAM: Jan 30 2021 7:50PM MDX 5291 - XR CHEST 2V FRONTAL/LAT / PROCEDURE REASON: Shortness of breath * * * * Physician Interpretation * * * * EXAMINATION: CHEST RADIOGRAPH (2 VIEW FRONTAL and LATERAL) CLINICAL HISTORY: Shortness of breath MQ: [id number]_6 EXAM DATE/TIME: 01/30/2021 7:50 PM COMPARISON: No relevant prior studies available. RESULT: Lines, tubes, and devices: None. Lungs and pleura: No consolidation. No lung mass. No pleural effusion. No pneumothorax. Cardiomediastinal silhouette: Normal cardiomediastinal silhouette. Bones and soft tissues: Unremarkable. IMPRESSION: No acute radiographic abnormality. Hair Or Beauty Salon Assistant: PSCB Transcribe Date/Time: Jan 30 2021 7:52P Dictated by : NELL ENGLAND MD This examination was interpreted and the report reviewed and electronically signed by: NELL ENGLAND MD on Jan 30 2021 7:53PM EST [id number] Normal [facility] Vital Signs Date Time Vital Sign Value Performing Clinician Facility 04-14-2025 10:25-0400 Body mass index (BMI) [Ratio] 35.73 kg/m2 Isabel WILKERSON Work Phone: [facility] 04-14-2025 10:25-0400 Body temperature 95.31 [degF] Isabel Esquivel APRN-BRIM PRESSER Work Phone: [facility] 04-14-2025 10:25040 Body weight 106.59 kg Isabel Esquivel APRN-NILSON Work Phone: [facility] 04-14-2025 10:25-0400 Diastolic blood pressure 71 mm[Hg] Isabel Esquivel APRN-BRIM PRESSER Work Phone: [facility] 04-14-2025 10:25-0400 Heart rate 69 /min Isabel Esquivel APRN-BRIM PRESSER Work Phone: [facility] 04-14-2025 10:25-0400 Respiratory rate 16 /min Isabel Esquivel METAL BENCH PATTERNMAKER-BRIM PRESSER Work Phone: [facility] 04-14-2025 10:25-0400 SaO2% (BldA) [Mass fraction] 94 % Isabel Esquivel METAL BENCH PATTERNMAKER-BRIM PRESSER Work Phone: [facility] 04-14-2025 10:25-0400 Systolic blood pressure 107 mm[Hg] Isabel Esquivel APRN-BRIM PRESSER Work Phone: [facility] 09-04-2024 09:46-0400 Body height 172.7 cm Mark Johnson MD Work Phone: [facility] 09-04-2024 09:46-0400 Body mass index (BMI) [Ratio] 36.8 kg/m2 Mark Johnson MD Work Phone: [facility] 09-04-2024 09:46-0400 Body weight 109.77 kg Mark Johnson MD Work Phone: [facility] Encounters Encounter Date Encounter Type Care Provider Facility Start: 04-14-2025 End: 04-14-2025 Office outpatient visit 15 minutes Isabel A Alvin CHAUDHARYN-BRIM PRESSER Work Phone: [facility] Comment on above: Nausea and vomiting, unspecified vomiting type (Primary Dx) Start: 11-19-2024 End: 11-19-2024 ambulatory [facility] Facility:[facility] Start: 09-04-2024 End: 09-04-2024 Office outpatient new 30 minutes Mark Johnson MD Work Phone: [facility] Comment on above: Patellofemoral arthr itis of left knee (Primary Dx); Left knee pain, unspecified chronicity Start: 09-04-2024 End: 09-04-2024 Subsequent hospital visit by physician Flower Maher110 X-Ray 1 [facility] Comment on above: Left knee pain, unsp ecified chronicity Start: 09-04-2024 End: 09-04-2024 ambulatory MARK JOHNSON [facility] Ambulatory Start: 02-21-2023 End: 02-21-2023 ambulatory [facility] Work Phone: Start: 02-21-2023 End: 02-21-2023 Patient encounter procedure [facility]-Pulmonary Services/Neurology Start: 10-05-2017 Ambulatory Karen Ruiz [facility] Procedures Date Procedure Procedure Detail Performing Clinician Start: 08-16-2022 Lipid 1996 panel - S rebecca or Plasma Mark Johnson MD Work Phone: Plan of Treatment Date Care Activity Detail Author Start: 08-16-2027 Lipid panel Lipid Panel [facility] Start: 08-16-2025 Diabetes mellitus screening Diabetes Screening [facility] Start: 07-08-2025 Influenza vaccination Influenz a Vaccine (Season Ended) [facility] Start: 09-04-2024 End: 09-04-2025 XR Knee - left 4 Views [facility] Service Area Work Phone: Comment on above: Expected: 09/04/2024 , Expires: 09/04/2025 Once for 1 Occurrenc es starting 09/04/2024 until 09/04/2024 Start: 07-08-2024 COVID-19 Vaccine ( season) COVID-19 Vaccine ( season) [facility] Start: 07-08-2024 COVID-19 Vaccine ( season) COVID-19 Vaccine ( season) [facility] Start: 07-08-2024 Influenza vaccination Influenza Vacc ine (#1) [facility] Start: 08-16-2023 Diabetes mellitus screening Diabetes Screening [facility] Start: 2023 Pneumococcal vaccination Pneumococcal Vaccine (1 of 1 - PCV) [facility] Start: 2023 Zoster Vaccines (1 o f 2) Zoster Vaccines (1 of 2) [facility] Start: 1995 DTaP/Tdap/Td Vaccine s (1 - Tdap) DTaP/Tdap/Td Vaccines (1 - Tdap) [facility] Start: 1992 Hepatitis B Vaccines (1 of 3 - 19+ 3-dose series) Hepatitis B Vaccines (1 of 3 - 19+ 3-dose series) [facility] Start: 1991 Hepatitis C screening Hepatitis C Sc reening [facility] Start: 1974 MMR Vaccines (1 of 1 - Standard series) MMR Vaccines (1 of 1 - Standard series) [facility] Start: 1973 HIV screening HIV Screening [facility] Start: 1973 Screening for malign ant neoplasm of colon [facility] Start: 1973 Yearly Adult Physical Yearly Adult P hysical [facility] Immunizations Immunization Date Immunization Notes Care Provider Natty burgess 08-16-2022 influenza virus vaccine, unspecified formulation Mark Johnson MD Work Phone: [facility] Work Phone: Payers Date Payer Category Payer [employer] [facility] [id number] 2024 Self-pay [id number] 2024 Managed Care (Private) [facility] [id number] 2024 Private Health Insurance [id number] 1975 Unknown [id number] 1973 Unknown [id number] Private Health Insurance [employer] [id number] Private Health Insurance [facility] [id number] [place] [address] [id number] Unknown Unknown [facility] [id number] Unknown [id number] Social History Date Type Detail Facility Start: [facility]17[facility] Start: 1975 Sex Assigned At Male [facility] Start: 09-04-2024 [facility] Work Phone: Start: 09-04-2024 Tobacco use and exposure Smokeless tobacco non-user [facility] Work Phone: Start: 09-04-2024 End: 04-14-2025 Alcoholic beverage intake Ex-drinker (finding) [facility] Work Phone: Start: 09-04-2024 End: 04-14-2025 History of Social function [facility] Work Phone: Start: 09-04-2024 End: 04-14-2025 Tobacco use panel [facility] Work Phone: Start: 1975 Sex assigned at Not on file [facility] Work Phone: History of Present illness Narrative 04-14-2025 Isabel Esquivel, METAL BENCH PATTERNMAKER-BRIM PRESSER - 04/14/2025 10:20 AM EDT Note Date & Type Note Facility 04-14-2025 History of Present illness Narrative Subjective Patient ID: Shelton Carr is a 50 y.o. male. They present today with a chief complaint of Vomiting and Nausea. History of Present Illness Patient presents with concern for nausea and vomiting since he got up this morning. States he had a BM this AM that was normal for him. Endorses no medications, states he's been given zofran in the past and was hoping for that. Vomiting Associated symptoms: no abdominal pain, no diarrhea, no fever and no headaches Past Medical History Allergies as of 04/14/2025 - Reviewed 04/14/2025 Allergen Reaction Noted Penicillins Unknown 04/13/2017 Prescriptions Prior to Admission[1] Medical History[2] Surgical History[3] reports that he has never smoked. He has never used smokeless tobacco. He reports that he does not currently use alcohol. He reports that he does not currently use drugs after having used the following drugs: Marijuana. Review of Systems Review of Systems Constitutional: Negative for diaphoresis, fatigue and fever. Respiratory: Negative for chest tightness and shortness of breath. Cardiovascular: Negative for chest pain. Gastrointestinal: Positive for nausea and vomiting. Negative for abdominal pain, constipation and diarrhea. Skin: Negative for pallor. Neurological: Negative for dizziness and headaches. Objective Vitals: 04/14/25 1025 BP: 107/71 Pulse: 69 Resp: 16 Temp: 35.2 C (95.3 F) SpO2: 94% Weight: 107 kg (235 lb) No LMP for male patient. Physical Exam Vitals reviewed. Constitutional: General: He is not in acute distress. Appearance: Normal appearance. He is not ill-appearing. Cardiovascular: Rate and Rhythm: Normal rate and regular rhythm. Pulmonary: Effort: Pulmonary effort is normal. Breath sounds: Normal breath sounds. Abdominal: General: There is no distension. Palpations: Abdomen is soft. Tenderness: There is no abdominal tenderness. There is no rebound. Neurological: Mental Status: He is alert. Procedures Point of Care Test & Imaging Results from this visit No results found for this visit on 04/14/25. Imaging No results found. Cardiology, Vascular, and Other Imaging No other imaging results found for the past 2 days Diagnostic study results (if any) were reviewed by RHEA Jolley. Assessment/Plan Allergies, medications, history, and pertinent labs/EKGs/Imaging reviewed by RHEA Jolley. Medical Decision Making Continue supportive measures, and symptom management. Provided prescription for zofran, advised hydration, bland diet. Go to ER for severe symptoms, inability to keep fluids down, lack of improvement. At time of discharge patient was clinically well-appearing and HDS for outpatient management. The patient and/or family was educated regarding diagnosis, supportive care, OTC and Rx medications. The patient and/or family was given the opportunity to ask questions prior to discharge. They verbalized understanding of my discussion of the plans for treatment, expected course, indications to return to or seek further evaluation in ED, and the need for timely follow up as directed. They were provided with a work/school excuse if requested. Orders and Diagnoses Diagnoses and all orders for this visit: Nausea and vomiting, unspecified vomiting type - ondansetron ODT (Zofran-ODT) 4 mg disintegrating tablet; Dissolve 1 tablet (4 mg) in the mouth every 8 hours if needed for nausea or vomiting for up to 12 doses. Medical Admin Record Patient disposition: Home Electronically signed by RHEA Jolley 11:05 AM [1] (Not in a hospital admission) [2] Past Medical History: Diagnosis Date Personal history of other diseases of the nervous system and sense organs History of sleep apnea Personal history of other endocrine, nutritional and metabolic disease History of thyroid disease [3] History reviewed. No pertinent surgical history. documented in this encounter [facility] Work Phone: History of Present illness Narrative 09-04-2024 Mark Johnson MD - 09/04/2024 9:40 AM EDT Note Date & Type Note Facility 09-04-2024 History of Present illness Narrative This is a 49-year-old male who comes to see me today for chief complaint of left knee pain. He says about 3 to 4 weeks ago he banged the front of his knee on his bed did not develop a large effusion but has had some pain in the anterior medial aspect of his knee and some crepitus since that time. He has been treating it with some cupping anti-inflammatories activity modification no physical therapy and no prescription NSAIDs at this point. This is a pleasant patient in no acute distress. They are alert and oriented x3. They are of normal mood and affect. They are in no acute distress. The patient's limb is warm and well-perfused. They have intact sensation to light touch in all lower extremity dermatomes. The patient's quadriceps and hamstring strength is 5 of 5. The patient can do a straight leg raise ROM is from 0-125 deg The patient has a weak core. The patient has tight hamstrings. The patient has one out of three patellofemoral crepitus. They have some mild increased patellar tilt They have a stable Aurora, negative posterior drawer. No posterior sag. The patient is stable to varus and valgus stress at both 0 and 30 There is mild medial joint line tenderness. No lateral jointline tenderness The patient has no effusion X-rays reveal no fractures or dislocations relatively well-preserved joint space Patient has symptoms that are most likely consistent with irritation of the patellofemoral joint versus possible medial meniscus tear at this point we will begin with some physical therapy anti-inflammatories we continue to have trouble he could follow-up with us and we could consider an injection versus getting an MRI scan if his pain localizes more to his meniscus documented in this encounter [facility] Work Phone: Evaluation note Note Date & Type Note Facility Evaluation note No assessment information availa [facility] Work Phone: Evaluation note Note Date & Type Note Facility Evaluation note Diagnosis Patellofemoral arthritis of left knee- Primary Left knee pain, unspecified chronicity documented in this encounter [facility] Work Phone: Evaluation note Note Date & Type Note Facility Evaluation note Diagnosis Left knee pain, unspecified chronicity documented in this encounter [facility] Work Phone: Evaluation note Note Date & Type Note Facility Evaluation note Diagnosis Nausea and vomiting, unspecified vomiting type- Primary documented in this encounter [facility] Work Phone: Reason for visit Narrative Imaging (Routine) - Authorized Note Date & Type Note Facility Reason for visit Narrative Specialty Diagnoses / Procedures Referred By Contac t Referred To Contact Radiology Diagnoses Left knee pain, unspecified chronicity Procedures XR knee left 4+ views Mark Johnson MD [address] [place] [address] [place] [address] Phone: tel: fax: Referral ID Status Reason Start Date Expiration Date Visits Requested Visits Authorized [id number] Authorized Perform Procedure 4 09/04/2025 1 1 [facility] Work Phone: Summary Purpose Family History Relationship Condition Age at Onset Recorded Date/T brandie mother Malignant neoplasm Unknown father Hypertension Unknown brother Hypertension Unknown Advance Directives No Advanced Directives Records FoundNo Advanced Directives Records FoundNo Advanced Directives Records FoundNo Advanced Directives Records FoundNo Advanced Directives Records FoundNo Advanced Directives Records Found Chief Complaint and Reason for Visit Chief Complaint Tachycardia, unspeci fied Additional Source Comments (unrecognized sect ion and content) No Status Records FoundNo Status Records FoundNo Status Records FoundNo Status Records FoundNo Status Records FoundNo Status Records Found INFORMATION SOURCE (unrecogn ized section and content) DATE CREATED AUTHOR 05/02/2018 [facility] DATE CREATED AUTHOR AUTHOR'S ORGANIZ ATION 02/01/2021 [facility] DATE CREATED AUTHOR AUTHOR'S ORGANIZ ATION 08/16/2022 [facility] DATE CREATED AUTHOR AUTHOR'S ORGANIZ ATION 09/10/2024 [facility] DATE CREATED AUTHOR AUTHOR'S ORGANIZ ATION 09/29/2024 [facility] DATE CREATED AUTHOR AUTHOR'S ORGANIZ ATION 11/22/2024 [facility] Care Teams (unrecognized sec tion and content) Team Status: Active Member Role Status Dates Dr. Jessica Spear MD Family Provider Active Team Status: Inactive Member Role Status Dates Jesús Williamson VISCOSE CELLAR CHARGE HAND, VISCOSE CELLAR CHARGE HAND-C Attending Provider, Referring Pro vider Active Goals (unrecognized section and content) Goals may be documented in a n alternate section Reason for Visit (unrecogniz ed section and content) Reason Comments Pain NPV L KNEE PAIN X 4 WEEKS PT STATES THEY HIT THEIR KNEE AGAINST THE CORNER OF A BED FRAME AT NIGHT Reason Comments Vomiting Nausea FOR RECORDS PERTAINING TO PATIENTS WHO ARE OR HAVE BEEN ENROLLED IN A CHEMICAL DEPENDENCY/SUBSTANCEABUSE PROGRAM, SOME INFORMATION MAY BE OMITTED. This clinical summary was aggregated from multiple sources. Caution should be exercised in using it in the provision of clinical care. This summary normalizes information from multiple sources, and as a consequence, information in this document may materially change the coding, format and clinical context of patient data. In addition, data may be omitted in some cases. CLINICAL DECISIONS SHOULD BE BASED ON THE PRIMARY CLINICAL RECORDS. [employer] [facility]. provides no warranty or guarantee of the accuracy or completeness of information in this document.
[2025-04-15 11:42] LABS: Troponin T High Sens 2 HR < 6 ng/L (<=22)
== END 2025-04-15 12:22 | disposition home or self-care (01) ==
PROVIDERS: Emergency Provider Emergency Medicine; Visit Provider Emergency Medicine
DX: R07.9 Chest pain, unspecified (principal); K20.90 Esophagitis, unspecified without bleeding; Z82.49 Family history of ischemic heart disease and other diseases of the circulatory system; I49.8 Other specified cardiac arrhythmias; Z86.16 Personal history of COVID-19; G47.33 Obstructive sleep apnea (adult) (pediatric)
CPT/HCPCS: 71045; 80048; 84484; 85025; 93005; 99284; A4216